=== PATIENT | female | born 1980 | race Caucasian/White ===

== ENCOUNTER 2018-06-22 19:20 | Emergency (ER) | payer OTHER ==
[2018-06-22 19:28] VITALS: BP 153/94
--- NOTE | 2018-06-22 20:05 | ED Physician Documentation ---
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 - Present Medications Home Medications: Ambulatory Orders Medication Instructions Recorded Confirmed Ibuprofen [Motrin] 800 mg PO Q8H PRN #30 tablet 06/22/18 - Allergies Allergies/Adverse Reactions: Allergies Allergy/AdvReac Type Severity Reaction Status Date / Time No Known Drug Allergies Allergy Verified 06/22/18 19:28 - Social History Does the pt smoke?: No Smoking Status: Never smoker Does the pt drink ETOH?: No Does the pt have substance abuse?: No - Immunizations Immunizations are current?: No Immunizations: TDAP current <10years - POLST Patient has POLST: No PD ED PE NORMAL - Vitals Vital signs reviewed: Yes (HR high, better after time, pt thinks anxiety) - General General: Alert and oriented X 3, No acute distress - HEENT HEENT: PERRL, EOMI, Ears normal - Neck Neck: Supple, no meningeal sign, No bony TTP - Cardiac Cardiac: RRR, No murmur - Respiratory Respiratory: No respiratory distress, Clear bilaterally - Abdomen Abdomen: Normal bowel sounds, Soft, Non tender - Back Back: No CVA TTP, No spinal TTP - Derm Derm: Normal color, Warm and dry - Extremities Extremities: No edema, No calf tenderness / cord - Neuro Neuro: Alert and oriented X 3, Normal speech Results - Vitals Vitals: Vital Signs - 24 hr 06/22/18 06/22/18 19:26 19:55 Temperature 37.3 C Heart Rate 146 H 135 H Respiratory 20 16 Rate Blood Pressure 153/94 H 153/94 H O2 Saturation 98 98 Oxygen O2 Source Room air - Labs Labs: Laboratory Tests 06/22/18 19:31 Influenza A (Rapid) POSITIVE H Influenza B (Rapid) Negative PD MEDICAL DECISION MAKING - ED course ED course: This is a 38-year-old woman with influenza A. We discussed the pros and cons of antiviral treatment and after discussion she declined. Departure - Departure Disposition: 01 Home, Self Care Clinical Impression: Influenza A Condition: Good Record reviewed to determine appropriate education?: Yes Instructions: ED Flu Prescriptions: Ibuprofen [Motrin] 800 mg PO Q8H PRN #30 tablet PRN Reason: PAIN &/OR FEVER Comments: As discussed you should be better in 3-5 days, return for new or worsening symptoms. Your blood pressure was elevated today on check into the emergency department. This does not mean that you have hypertension, it is a common phenomenon to come to the emergency department and have elevated blood pressure. I recommend that you see your primary care physician within the week to have it rechecked when you are feeling better. Forms: Activity restrictions
== END 2018-06-22 20:10 | disposition home or self-care (01) ==
LOC: ED 19:20
DX: J10.1 Influenza due to other identified influenza virus with other respiratory manifestations (principal); R03.0 Elevated blood-pressure reading, without diagnosis of hypertension; E03.9 Hypothyroidism, unspecified
CPT/HCPCS: 87275; 87276; 99283

== ENCOUNTER 2018-07-14 00:19 | Emergency (ER) | payer OTHER ==
[2018-07-14 00:25] VITALS: BP 146/87
--- NOTE | 2018-07-14 01:12 | ED Physician Documentation ---
PD HPI FOCAL NEURO - Stated complaint Stated Complaint: NUMB FACE - Chief complaint Chief Complaint: General - History obtained from History obtained from: Patient - History of Present Illness Timing - onset: Today (noted onset of right face feeling weak slowly worse through the day. Has had some sinus pressure, pain toward the right ear, has had runny nose. No headache. Seen by PMD today and started on Amox abx for possible sinus infection and also Flonase. Did not have notable facial weakness at the time of that visit, but has developed through the day.) Timing - duration: Days (1/2) Timing - details: Gradual onset, Still present (progressing) Severity of deficit: Moderate Weakness: Face, Right. No: Arm, Leg Numbness: No: Face, Arm, Leg Associated symptoms: No: Headache, Nausea / vomiting Baseline status: positive: A&OX3, ambulatory, indep Similar symptoms before: Has not had sx before Recently seen: Clinic (see above) Review of Systems Constitutional: denies: Fever Eyes: denies: Loss of vision, Decreased vision Nose: reports: Rhinorrhea / runny nose, Sinus pressure / pain. 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 - Present Medications Home Medications: Ambulatory Orders Medication Instructions Recorded Confirmed Ibuprofen [Motrin] 800 mg PO Q8H PRN #30 tablet 06/22/18 Dexamethasone [Decadron] 4 mg PO DAILY #7 tablet 07/14/18 - Allergies Allergies/Adverse Reactions: Allergies Allergy/AdvReac Type Severity Reaction Status Date / Time No Known Drug Allergies Allergy Verified 06/22/18 19:28 - Social History Does the pt smoke?: No Smoking Status: Never smoker Does the pt drink ETOH?: No Does the pt have substance abuse?: No - Immunizations Immunizations are current?: No Immunizations: TDAP current <10years - POLST Patient has POLST: No PD ED PE NORMAL - Vitals Vital signs reviewed: Yes - General General: Alert and oriented X 3, Well developed/nourished - HEENT HEENT: Ears normal, Pharynx benign - Neck Neck: Supple, no meningeal sign, No adenopathy, No bruit - Cardiac Cardiac: RRR, No murmur - Respiratory Respiratory: Clear bilaterally - Derm Derm: Normal color, Warm and dry, No rash - Neuro Neuro: Alert and oriented X 3, No sensory deficit, Normal speech, Other (The right side of the face has moderate weakness. She is just able to close her eye to the lids contacting on the right. The weakness is also noted on the forehead area with difficulty raising the eyebrow on the right. Arms and legs show normal or motor exam and strength. She has normal sensation on the face. The rest of the cranial nerves are normal.) Eye Opening: Spontaneous Motor: Obeys Commands Verbal: Oriented GCS Score: 15 Results - Vitals Vitals: Vital Signs - 24 hr 07/14/18 00:21 Temperature 36.6 C Heart Rate 109 H Respiratory 18 Rate Blood Pressure 146/87 H O2 Saturation 99 Oxygen O2 Source Room air PD MEDICAL DECISION MAKING - ED course Complexity details: considered differential (The weakness of just the face including the forehead is consistent with a facial nerve palsy. She has had sinus symptoms recently so there may be some sinus or ear canal inflammation contributing to the facial palsy. She has not been in any Lyme risk areas. She does not have a history of herpetic sores. She is rather young for vas culitis.), d/w patient Departure - Departure Disposition: 01 Home, Self Care Clinical Impression: Facial nerve palsy Condition: Stable Record reviewed to determine appropriate education?: Yes Instructions: ED [place] [facility] Follow-Up: OMAR ROMO [Primary Care Provider] - Prescriptions: Dexamethasone [Decadron] 4 mg PO DAILY #7 tablet Comments: Continue the medications for the sinus infection/inflammation. Add Decadron steroid for inflammation. 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 It can progress over several days and take several weeks to improve. Get some eye lubricating drops and use periodically through the day. If your eye feels like it does not close completely, you could gently tape it shut at night for sleeping so does not get dried. Follow-up with your primary care later this week or next week for recheck. Discharge Date/Time: 07/14/18 02:02
[2018-07-14] MEDS ORDERED: CHERRY SYRUP 10 ML UDC PO ONE (01:54)
[2018-07-14] MEDS ORDERED: DEXAMETHASONE 10 MG/ML VIAL PO STA (01:54)
== END 2018-07-14 02:02 | disposition home or self-care (01) ==
LOC: ED 00:19
DX: G51.0 Bell's palsy (principal); J34.89 Other specified disorders of nose and nasal sinuses
CPT/HCPCS: 99283; A9270

== ENCOUNTER 2019-05-23 12:55 | Outpatient (CLI) | payer OTHER ==
--- NOTE | 2019-06-02 14:16 | Mammography Report ---
Reason: ROUTINE MAMMO Procedure Date: 05/23/2019 Accession Number: [id number] / [id number] Procedure: MGN - Screening Mammo Dig Bilat CPT Code: Final Report FULL RESULT: EXAM: Screening Mammo Dig Bilat DATE: 05/23/2019 1:21 PM CLINICAL HISTORY: Screening encounter. History of early menses. Baseline exam. TECHNIQUE: (B) - Bilateral CC and MLO views were obtained. COMPARISON: None PARENCHYMAL PATTERN: (D) - The breast(s) demonstrate(s) heterogeneously dense fibroglandular parenchyma. FINDINGS: There are no suspicious masses, calcifications, or areas of distortion. IMPRESSION: Negative examination. BI-RADS category 1. RECOMMENDATION: (ANNUAL) - Recommend routine annual screening mammography. BI-RADS CATEGORY: (1) - Negative. STANDARD QUALIFYING STATEMENTS: 1. This examination was not reviewed with the aid of Computer-Aided Detection (CAD). 2. A negative or benign imaging report should not preclude biopsy if clinically suspicious findings are present. 3. Dense breasts may obscure an underlying neoplasm. 4. This examination was reviewed without the aid of 3D breast imaging (tomosynthesis).
== END 2019-05-23 12:56 | disposition home or self-care (01) ==
LOC: DI.N 12:55
DX: Z12.31 Encounter for screening mammogram for malignant neoplasm of breast (principal)
CPT/HCPCS: 77067

== ENCOUNTER 2019-09-09 10:03 | Outpatient (CLI) | payer OTHER ==
[2019-09-09] MEDS ORDERED: GADOBUTROL 10 MMOL/10 ML VIAL ONE (11:23)
[2019-09-09] MEDS ORDERED: GADOBUTROL 10 MMOL/10 ML VIAL IVP ONE (12:03)
--- NOTE | 2019-09-11 11:04 | MRI Report ---
Reason: ABN UTERINE/VAGINAL BLEEDING, LT OVARIAN CYST Procedure Date: 09/09/2019 Accession Number: [id number] / [id number] Procedure: MRI - Pelvis W/WO CPT Code: Final Report FULL RESULT: PROCEDURE: Pelvis W/WO INDICATIONS: ABN UTERINE/VAGINAL BLEEDING, LT OVARIAN CYST CONTRAST: IV CONTRAST: Gadavist ml: 9 TECHNIQUE: Coronal ultra fast SE, sagittal breath-hold T2 FSE; axial T1 FSE with and without fat saturation through the pelvis. Optional long- and short-axis uterine nonbreath-hold T2 FSE through the uterus. Sagittal or axial dynamic ultra fast GE during administration of contrast. Post-contrast axial or coronal ultra fast GE / 2-D spoiled GE with fat saturation from the iliac crests to the symphysis. Optional diffusion weighted imaging and ADC may be performed. COMPARISON: Pelvic ultrasound 03/05/2008. FINDINGS: Image quality: Excellent. Uterus: Uterus is normal in size. No mass. Endometrium is normal in thickness measuring 6 mm. Junctional zone is normal in thickness at 12 mm or less. Small nabothian cysts. Adnexa: Both ovaries are normal in size, without suspicious cystic or solid lesions. Simple T2 hyperintense left ovarian cyst measuring 4.5 cm, (1001/98). No abnormal enhancement. No intralesional fat. Additional left ovarian cyst with a crenulated appearance and intrinsic T1 hyperintensity consistent with proteinaceous/hemorrhagic debris measuring 1.5 cm, (1001/79), consistent with hemorrhagic cyst or corpus luteum. Urinary system: Bladder is decompressed. Distal ureters are non distended. Urethra appears normal in morphology. Nodes and vessels: No pelvic or inguinal adenopathy by size criteria. Iliac vessels are normal in size. Bowel and peritoneum: No pathologic free pelvic fluid. Inferior colon and small bowel loops are normal in caliber. Soft tissues: No inguinal hernias. No findings of pelvic floor incompetence in the absence of provocation. Bones: Marrow demonstrates normal overall signal. IMPRESSION: 1. Left ovarian simple cyst measuring 4.5 cm. No suspicious imaging features. -Consider follow-up pelvic ultrasound if the patient's symptoms persist. 2. Left hemorrhagic cyst or corpus luteum measuring 1.5 cm. No abnormal enhancement. 3. No free fluid. 4. Endometrium is normal measuring 6 mm in thickness. Reviewed by: Dre Sepulveda MD on 09/11/2019 11:03 AM PDT Approved by: Dre Sepulveda MD on 09/11/2019 11:03 AM PDT Station ID: [id number]
== END 2019-09-09 10:04 | disposition home or self-care (01) ==
LOC: DI 10:03
PROVIDERS: ATTEND Obstetrics & Gynecology
DX: N83.292 Other ovarian cyst, left side (principal)
CPT/HCPCS: 72197; A9585

== ENCOUNTER 2020-06-09 10:46 | Outpatient (CLI) | payer OTHER ==
--- NOTE | 2020-06-10 13:24 | Mammography Report ---
BILATERAL DIGITAL SCREENING MAMMOGRAM 3D/2D: 06/09/2020 CLINICAL: Routine screening. Comparison is made to exam dated: 05/23/2019 mammogram - [facility]. The tissue of both breasts is heterogeneously dense. This may lower the sensitivity of mammography. There is an oval equal density mass with an obscured and circumscribed margin in the right breast at 5 o'clock anterior depth. No other significant masses, calcifications, or other findings are seen in either breast. IMPRESSION: INCOMPLETE: NEEDS ADDITIONAL IMAGING EVALUATION The oval equal density mass in the right breast is indeterminate. Mediolateral and spot compression views as well as additional views with possible ultrasound are recommended. This exam was interpreted at Station ID: [id number]. NOTE: For mammograms, a report in lay terms will be sent to the patient. Approximately 15% of breast malignancies will not be visualized mammographically. In the management of a palpable breast mass, a negative mammogram must not discourage biopsy of a clinically suspicious lesion. Electronically Signed By: Yash Farooq M.D. ddomar/pentino:06/09/2020 11:59:12 ACR BI-RADS Category 0: Incomplete 3340F PARENCHYMAL PATTERN: (D) - The breast(s) demonstrate(s) heterogeneously dense fibroglandular parenchy ma. BI-RADS CATEGORY: (0) - 0 Mammo and US [id number] Immediate follow-up LATERALITY: (B)
== END 2020-06-09 10:47 | disposition home or self-care (01) ==
LOC: DI.N 10:46
DX: Z12.31 Encounter for screening mammogram for malignant neoplasm of breast (principal); N63.14 Unspecified lump in the right breast, lower inner quadrant

== ENCOUNTER 2020-06-22 11:42 | Outpatient (CLI) | payer OTHER ==
--- NOTE | 2020-06-23 13:38 | Mammography Report ---
UNILATERAL RIGHT DIGITAL DIAGNOSTIC MAMMOGRAM 3D/2D: 06/22/2020 CLINICAL: Patient returns today to evaluate a density in the right breast. Comparison is made to exams dated: 06/09/2020 mammogram and 05/23/2019 mammogram - [facility]. The tissue of right breast is heterogeneously dense. This may lower the sensitivity of ma mmography. There is a 0.8 cm oval equal density mass with an obscured and circumscribed margin in the right g[address] at 5 o'clock anterior depth. No other significant masses or calcifications are seen in the breast. IMPRESSION: INCOMPLETE: NEEDS ADDITIONAL IMAGING EVALUATION The 0.8 cm oval equal density mass in the right breast is indeterminate. A targeted ultrasound is recommended and will immediately follow. This exam was interpreted at Station ID: [id number]. NOTE: For mammograms, a report in lay terms will be sent to the patient. Approximately 15% of breast malignancies will not be visualized mammographically. In the management of a palpable breast mass, a negative mammogram must not discourage biopsy of a clinically suspicious lesion. Electronically Signed By: Dre Sepulveda M.D. slc/:06/22/2020 13:25:42 ACR BI-RADS Category 0: Incomplete 3340F PARENCHYMAL PATTERN: (D) - The breast(s) demonstrate(s) heterogeneously dense fibroglandular parenchy ma. BI-RADS CATEGORY: (0) - 0 Ultrasound [id number] Immediate follow-up LATERALITY: (B)
--- NOTE | 2020-06-23 13:39 | Ultrasound Report ---
LIMITED ULTRASOUND OF RIGHT BREAST: 06/22/2020 CLINICAL: Patient returns for additional imaging over a suspected mass in the right breast. Comparison is made to exams dated: 06/22/2020 mammogram, 06/09/2020 mammogram, and 05/23/2019 mammogram - [facility]. Color flow and real-time ultrasound of the right breast 5 o'clock region were performed. Casanova scale images of the real-time examination were reviewed. There is a 1.2 cm x 0.8 cm x 0.7 cm oval cyst in the right breast at 5 o'clock anterior depth 7 cm fr om the nipple. This oval cyst is anechoic and hypoechoic with a well-defined boundary and internal e choes. This correlates with mammography findings. Color flow imaging demonstrates that there is no vascularity present. Adjacent anechoic simple cyst measuring 0.9 cm. IMPRESSION: PROBABLY BENIGN The 1.2 cm oval cyst in the right breast is consistent with a complicated cyst and is probably benign . A follow-up mammogram and an ultrasound in 6 months is recommended to demonstrate stability. Adjacent simple cyst measuring 0.9 cm is benign. Exam findings were conveyed to the patient. This exam was interpreted at Station ID: [id number]. Electronically Signed By: Dre Sepulveda M.D. slc/:06/22/2020 13:36:20 Ultrasound BI-RADS: 3 Probably benign BI-RADS CATEGORY: (3) - 3 Mammo and [place] [id number] 6 month follow-up LATERALITY: (B)
== END 2020-06-22 11:43 | disposition home or self-care (01) ==
LOC: DI 11:42
PROVIDERS: ATTEND Nurse Practitioner Family
DX: R92.8 Other abnormal and inconclusive findings on diagnostic imaging of breast (principal); N60.01 Solitary cyst of right breast

== ENCOUNTER 2020-07-20 09:28 | Emergency (ER) | payer OTHER ==
--- NOTE | 2020-07-20 10:20 | XRAY Report ---
PROCEDURE: Ankle 3 View RT INDICATIONS: injury/pain TECHNIQUE: 3 views of the ankle were acquired. COMPARISON: None FINDINGS: Bones: No fractures or dislocations. Ankle mortise is normally aligned. No suspicious bony lesions . Small retrocalcaneal enthesophyte. Soft tissues: No tibiotalar joint effusion. Achilles tendon appears normal. Soft tissue swelling o marcela the lateral malleolus. IMPRESSION: Lateral malleolar soft tissue swelling without underlying fracture or dislocation. Reviewed by: Donato Simpson MD on 07/20/2020 9:18 AM MANDY Approved by: Donato Simpson MD on 07/20/2020 9:18 AM MANDY Station ID: [id number]
--- NOTE | 2020-07-20 11:03 | ED Physician Documentation ---
PD HPI LOWER EXT INJURY - Stated complaint Stated Complaint: RT ANKLE INJ - Chief complaint Chief Complaint: Ext Problem - History obtained from History obtained from: Patient - Additional information Additional information: Pt c/o R ankle pain/swelling after a twisting injury last night. Pt states it hurts to bear weight, which prompted her to come to the ED. No other injuries or complaints. Review of Systems Ten Systems: 10 systems reviewed and negative Constitutional: reports: Reviewed and negative Eyes: reports: Reviewed and negative Ears: reports: Reviewed and negative Nose: reports: Reviewed and negative Throat: reports: Reviewed and negative Cardiac: reports: Reviewed and negative Respiratory: reports: Reviewed and negative GI: reports: Reviewed and negative : reports: Reviewed and negative Skin: reports: Reviewed and negative Musculoskeletal: reports: Joint pain, Joint swelling, Pain with weight bearing Neurologic: reports: Reviewed and negative Psychiatric: reports: Reviewed and negative Endocrine: reports: Reviewed and negative Immunocompromised: reports: Reviewed and negative PD PAST MEDICAL HISTORY - Past Medical History Past Medical History: Yes Cardiovascular: None Respiratory: None Neuro: None Endocrine/Autoimmune: HyPOthyroidism GI: 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 : None HEENT: None Psych: None Musculoskeletal: None Derm: None - Past Surgical History 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 - Present Medications Home Medications: Ambulatory Orders Medication Instructions Recorded Confirmed Ibuprofen [Motrin] 800 mg PO Q8H PRN #30 tablet 06/22/18 dexAMETHasone [Decadron] 4 mg PO DAILY #7 tablet 07/14/18 - Allergies Allergies/Adverse Reactions: Allergies Allergy/AdvReac Type Severity Reaction Status Date / Time No Known Drug Allergies Allergy Verified 07/20/20 09:44 - Social History Does the pt smoke?: No Smoking Status: Never smoker Does the pt drink ETOH?: No Does the pt have substance abuse?: No - Immunizations Immunizations are current?: No Immunizations: TDAP current <10years - POLST Patient has POLST: No PD ED PE NORMAL - Vitals Vital signs reviewed: Yes - General General: Alert and oriented X 3, No acute distress - HEENT HEENT: Atraumatic, PERRL, EOMI, Moist mucous membranes - Neck Neck: Supple, no meningeal sign - Cardiac Cardiac: Strong equal pulses - Respiratory Respiratory: No respiratory distress - Derm Derm: Normal color, Warm and dry, No rash - Extremities Extremities: No deformity, Other (Mild edema over R lateral malleolus, with tenderness. No deformity) - Neuro Neuro: Alert and oriented X 3 - Psych Psych: Normal mood, Normal affect Results - Vitals Vitals: Oxygen O2 Source Room air - Rads (name of study) XR R ankle Radiology: Final report received, EMP read indepedently, See rad report PD MEDICAL DECISION MAKING - ED course Complexity details: reviewed results, re-evaluated patient, considered differential, d/w patient, d/w family ED course: XR of R ankle was negative. Pt was placed in an air-splint and given crutches. We have discussed indications for follow-up. Departure - Departure Disposition: 01 Home, Self Care Clinical Impression: Right ankle sprain Qualifiers: Encounter type: initial encounter Involved ligament of ankle: unspecified ligament Qualified Code(s): S93.401A - Sprain of unspecified ligament of right ankle, initial encounter Condition: Stable Instructions: ED Sprain Ankle Comments: Your x-ray series looks good. There is no evidence of a broken bone and most likely, based on your injury, symptoms, and x-ray, you have sprained your ankle. This injury will heal on its own in the next several weeks and you may bear weight as tolerated. If your ankle feels to painful to weight-bear, or if you feel like you need more support, you may use the Aircast and crutches that we have given you. You may also use ice and ibuprofen to help with swelling and pain. Prop the foot up whenever you are sitting down to help keep swelling from pulling down in your ankle and foot. Do not engage in any high impact or strenuous activities with that ankle and foot for the next several weeks or until you are feeling better. Discharge Date/Time: 07/20/20 11:29
[2020-07-20 11:29] VITALS: BP 138/90
== END 2020-07-20 11:29 | disposition home or self-care (01) ==
LOC: ED 09:28
DX: S93.401A Sprain of unspecified ligament of right ankle, initial encounter (principal); X50.1XXA Overexertion from prolonged static or awkward postures, initial encounter
CPT/HCPCS: 99282; 99283

== ENCOUNTER 2021-01-14 10:35 | Outpatient (CLI) | payer OTHER ==
--- NOTE | 2021-01-17 08:48 | Mammography Report ---
UNILATERAL RIGHT DIGITAL DIAGNOSTIC MAMMOGRAM 3D/2D: 01/14/2021 CLINICAL: Patient returns for a 6 month follow up of the right breast. Comparison is made to exams dated: 06/22/2020 ultrasound, 06/22/2020 mammogram, 06/09/2020 mammogram, a nd 05/23/2019 mammogram - [facility]. The tissue of right breast is heterogeneously dense. This may lower the sensitivity of mammography. There is a stable 0.8 cm oval equal density mass with an obscured and circumscribed margin in the rig ht breast at 5 o'clock anterior depth. No other significant masses or calcifications are seen in the breast. All other findings are stable. IMPRESSION: INCOMPLETE: NEEDS ADDITIONAL IMAGING EVALUATION The 0.8 cm oval equal density mass in the right breast is stable. An ultrasound is recommended to doc ument internal stability. This was performed immediately following this exam. This exam was interpreted at Station ID: [id number]. NOTE: For mammograms, a report in lay terms will be sent to the patient. Approximately 15% of breast malignancies will not be visualized mammographically. In the management of a palpable breast mass, a negative mammogram must not discourage biopsy of a clinically suspicious lesion. Electronically Signed By: Albina lechuga/:01/14/2021 11:47:25 ACR BI-RADS Category 0: Incomplete 3340F PARENCHYMAL PATTERN: (D) - The breast(s) demonstrate(s) heterogeneously dense fibroglandular parjairy ma. BI-RADS CATEGORY: (0) - 0 Ultrasound [id number] Immediate follow-up LATERALITY: (B)
--- NOTE | 2021-01-17 08:49 | Ultrasound Report ---
LIMITED ULTRASOUND OF RIGHT BREAST: 01/14/2021 CLINICAL: Patient returns for short term follow-up of a probably benign cysts in the right breast. Comparison is made to exams dated: 01/14/2021 mammogram, 06/22/2020 ultrasound, 06/22/2020 mammogram, 06/09/2020 mammogram, and 05/23/2019 mammogram - [facility]. Color flow and real-time ultrasound of the right breast 5 o'clock region were performed. Casanova scale images of the real-time examination were reviewed. There is a 0.5 cm x 0.5 cm x 0.5 cm oval cyst in the right breast at 5 o'clock anterior depth 7 cm fr om the nipple. This oval cyst is homogeneously hypoechoic. This abnormality is decreased in size an d correlates with mammography findings. Color flow imaging demonstrates that there is no vascularity present. There also is a 1.1 cm x 0.8 cm x 0.7 cm oval cyst in the right breast at 5 o'clock middle depth 7 cm from the nipple. This oval cyst is hypoechoic with dependently layering internal echoes. This abno rmality is not significantly changed and correlates with mammography findings. Color flow imaging de monstrates that there is no vascularity present. IMPRESSION: PROBABLY BENIGN The 0.5 cm cyst in the right breast at 5 o'clock anterior depth has decreased in size, is consistent with a complicated cyst and is probably benign. The 1.1 cm cyst in the right breast at 5 o'clock middle depth is stable, consistent with a complicate d cyst and is also probably benign. A follow-up right mammogram and an ultrasound in 6 months is recommended to demonstrate stability. The patient will be due for bilateral mammograms at that same visit. Findings and recommendations were conveyed to the patient at time of exam. This exam was interpreted at Station ID: [id number]. Electronically Signed By: Albina lechuga/:01/14/2021 12:24:50 Ultrasound BI-RADS: 3 Probably benign BI-RADS CATEGORY: (3) - 3 Mammo and US [id number] 6 month follow-up LATERALITY: (R)
== END 2021-01-14 10:36 | disposition home or self-care (01) ==
LOC: DI 10:35
PROVIDERS: ATTEND Family Medicine
DX: N60.11 Diffuse cystic mastopathy of right breast (principal)

== ENCOUNTER 2023-09-25 14:43 | Emergency (ER) | payer OTHER ==
--- NOTE | 2023-09-25 16:41 | ED Physician Documentation ---
PD HPI LOWER EXT INJURY - Stated complaint Stated Complaint: RT ANKLE INJ - Chief complaint Chief Complaint: Trauma Ext - History obtained from History obtained from: Patient, Family - History of Present Illness PD HPI LOW EXT INJURY LOCATION: Right, Ankle, Foot Type of injury: Fall Where injury occurred: Park Timing - onset: Yesterday Timing - duration: Days (1) Timing - details: Abrupt onset, Still present Improved by: Rest, Ice, Immobilization Worsened by: Moving, Palpating Associated symptoms: Swelling, Discolored. No: Weakness, Numbness, Tingling Contributing factors: No: Anticoagulated, Prior ortho surgery, Prosthetic joint, Work related Similar symptoms before: Has not had sx before Recently seen: Not recently seen - Additional information Additional information: Aliza Valera is a 43-year-old female was walking across the a park yesterday when she stepped off of a curb without placing her foot correctly and she rolled her ankle she is complaining of pain to the dorsum of the foot near the ankle and pain with weightbearing. She avulsed the great toenail of the left great toe at the same time. She has been using some crutches for ambulation. Review of Systems Constitutional: denies: Fever Ears: denies: Ear pain Nose: denies: Congestion Respiratory: denies: Cough GI: denies: Vomiting PD PAST MEDICAL HISTORY - Past Medical History Past Medical History: Yes Cardiovascular: None Respiratory: None Neuro: None Endocrine/Autoimmune: HyPOthyroidism GI: None TRANSFER PUMPER: Ovarian cysts : None HEENT: None Psych: Anxiety Musculoskeletal: None Derm: None - Past Surgical History Past Surgical History: Yes /TRANSFER PUMPER: Tubal ligation - Allergies Allergies/Adverse Reactions: Allergies Allergy/AdvReac Type Severity Reaction Status Date / Time No Known Drug Allergies Allergy Verified 09/25/23 14:54 - Social History Does the pt smoke?: No Smoking Status: Never smoker Does the pt drink ETOH?: No Does the pt have substance abuse?: No - Immunizations Immunizations are current?: Yes Immunizations: TDAP current <10years - POLST Patient has POLST: No PD ED PE NORMAL - Vitals Vital signs reviewed: Yes (Hypertensive) - General General: Alert and oriented X 3, No acute distress, Well developed/nourished - HEENT HEENT: Atraumatic, PERRL, EOMI - Respiratory Respiratory: No respiratory distress - Derm Derm: Normal color, Warm and dry, No rash - Extremities Extremities: Other (Point tenderness over the dorsum of the foot laterally. No specific point tenderness over the lateral malleolus pain with flexion extension of the foot no pain over the fifth proximal. Distal neurovascular intact. Partial avulsion left great toenail) - Neuro Neuro: Alert and oriented X 3, donations attendant 2-12 intact, No motor deficit, No sensory deficit, Normal speech Eye Opening: Spontaneous Motor: Obeys Commands Verbal: Oriented GCS Score: 15 - Psych Psych: Normal mood, Normal affect Results - Vitals Vitals: Vital Signs - 24 hr 09/25/23 09/25/23 14:54 16:52 Temperature 36.2 C L 36.2 C L Heart Rate 90 90 Respiratory 16 18 Rate Blood Pressure 148/94 H 149/98 H O2 Saturation 96 98 Oxygen O2 Source Room air - Rads (name of study) Ankle right Relevant Findings:: Prelim report reviewed (Impression: No acute bony abnormality.), EMP independent interpretation of test (On my view I am seeing a mildly displaced chip fracture on the cuboid. This is corresponding to the area of specific tenderness and discoloration to the patient's foot.), See rad report PD Medical Decision Making - ED course Complexity details: considered differential, d/w patient ED course: 43-year-old Aliza Valera presents to the emergency department with a injury to her ankle and foot she has maximal point tenderness over the cuboid laterally on the right foot with a corresponding finding on x-ray of a mildly displaced avulsion fracture. She is placed into a walking boot and expected to recover she is given orthopedics for follow-up Departure - Departure Disposition: 01 Home, Self Care Clinical Impression: Cuboid fracture Qualifiers: Encounter type: initial encounter Fracture type: closed Fracture alignment: displaced Laterality: right Qualified Code(s): S92.211A - Displaced fracture of cuboid bone of right foot, initial encounter for closed fracture Condition: Stable Instructions: ED Fx Foot, ED Boot Aircast Walker Follow-Up: Micha Brady MD [Provider Admit Priv/Credential] - Comments: Aliza today looks like you have a fracture of the cuboid bone on your right foot and an avulsed nail of the left great toe. For the cuboid fracture we are placing you into a walking boot and you should find that over the next week you begin to be able to use the walking boot more more for now wear the walking boot and use the crutches. A follow-up with orthopedics is indicated and I have given you the name of an orthopedic surgeon here on [facility]. The nail which is partially avulsed now will fall off in the next 1 to 3 weeks and the recommendation is to wear a Band-Aid over it so that your shoes and socks do not rub against the nailbed. This will take about 8 months for the nail to grow back in. Forms: PCP List Discharge Date/Time: 09/25/23 16:52
--- NOTE | 2023-09-25 16:51 | XRAY Report ---
PROCEDURE: Ankle 3+V RT INDICATIONS: Trauma TECHNIQUE: 3 views of the ankle were acquired. COMPARISON: None. FINDINGS: Bones: No fractures or dislocations. Ankle mortise is normally aligned. No suspicious bony lesions . Soft tissues: No tibiotalar joint effusion. Achilles tendon appears normal. IMPRESSION: No acute bony abnormality. If pain persists with conservative management, consider repeat x-ray in 10 -14 days or cross-sectional imaging. Reviewed by: Niraj Hyman MD on 09/25/2023 4:50 PM PDT Approved by: Niraj Hyman MD on 09/25/2023 4:50 PM PDT Station ID: [id number]
[2023-09-25 17:00] VITALS: BP 149/98; O2SAT 98
== END 2023-09-25 16:52 | disposition home or self-care (01) ==
LOC: ED 14:43
DX: S92.211A Displaced fracture of cuboid bone of right foot, initial encounter for closed fracture (principal); S91.202A Unspecified open wound of left great toe with damage to nail, initial encounter; X50.1XXA Overexertion from prolonged static or awkward postures, initial encounter; Y93.01 Activity, walking, marching and hiking; Y92.830 Public park as the place of occurrence of the external cause
CPT/HCPCS: 99283; 99284